=== PATIENT | female | born 1975 | race African-American/Black ===

== ENCOUNTER 2025-05-12 09:50 | Emergency (ER) | payer OTHER ==
[2025-05-12] MEDS ORDERED: Ketorolac Tromethamine 30 MG (1 mL) VIAL ONE (11:14)
[2025-05-12 14:21] LABS: Cocaine Metabolite Screen Negative (Negative); THC/Cannabinoid Screen Negative (Negative); Tricyclic Screen Negative (Negative)
== END 2025-05-12 14:43 | disposition home or self-care (01) ==
LOC: ERS 09:50
DX: S23.41XA Sprain of ribs, initial encounter (principal); M54.2 Cervicalgia; M25.521 Pain in right elbow; M25.511 Pain in right shoulder; W22.8XXA Striking against or struck by other objects, initial encounter
CPT/HCPCS: 72050; 80306; 96372; 99283; J1885